=== PATIENT | female | born 1970 | race Caucasian/White ===

== ENCOUNTER 2018-06-29 13:55 | Emergency (ER) | payer BC ==
[~2018-06-29] VITALS: Ht 170.2 cm; Wt 85.0 kg
[2018-06-29 14:13] VITALS: Ht 170.2 cm; Wt 85.0 kg
[2018-06-29] MEDS ORDERED: NORCO 7.5/325 T1 TA1 PO (15:37)
[2018-06-29] MEDS ORDERED: PENICILLIN V P500 MG PO (15:37)
[2018-06-29 16:35] VITALS: BP 120/70
== END 2018-06-29 16:35 | disposition home or self-care (01) ==
LOC: D.ER 13:55
DX: S02.5XXA Fracture of tooth (traumatic), initial encounter for closed fracture (principal); X58.XXXA Exposure to other specified factors, initial encounter; Y93.89 Activity, other specified; Y92.89 Other specified places as the place of occurrence of the external cause; K04.7 Periapical abscess without sinus; K08.89 Other specified disorders of teeth and supporting structures; F17.200 Nicotine dependence, unspecified, uncomplicated